=== PATIENT | male | born 1975 | race Caucasian/White ===

== ENCOUNTER → 2020-11-19 | Outpatient (CLI) | payer OTHER ==
[~2020-11-19] MED LIST: 3 BP MEDS; CYCL10 PO; ERGO50000 PO; HYDACE5 PO; HYDCHL25 PO; LISHYD1012 PO; LISI20 PO; METF500 PO; NAPR500 PO; OXYACE5T PO; SULTRIDS PO; [UNRECOGNIZED DRUG - REMARK]
[2020-11-19 20:23] LABS: Creatinine Urine 90.2 mg/dL (27.00-270.00); Protein, Urine Quantitative 10.6 mg/dL (0.0-11.9)
[2020-11-19 20:25] LABS: Microalbumin, Urine Quant. 22.5 mg/L (0.000-20.000)
== END | disposition home or self-care (01) ==
LOC: LAB 13:38 → LAB FUT 13:38
PROVIDERS: Internal Medicine Nephrology
DX: N18.30 Chronic kidney disease, stage 3 unspecified (principal); D63.1 Anemia in chronic kidney disease; N25.81 Secondary hyperparathyroidism of renal origin; E55.9 Vitamin D deficiency, unspecified; E78.00 Pure hypercholesterolemia, unspecified; D51.8 Other vitamin B12 deficiency anemias; D52.8 Other folate deficiency anemias; D50.9 Iron deficiency anemia, unspecified; R76.9 Abnormal immunological finding in serum, unspecified; R94.5 Abnormal results of liver function studies; R94.6 Abnormal results of thyroid function studies
CPT/HCPCS: 81050; 82043; 82570; 84156